=== PATIENT | female | born 1995 | race Caucasian/White ===

== ENCOUNTER 2025-01-25 12:57 | Outpatient (AMB) | payer OTHER, SELFPAY ==
[2025-01-25 12:58] VITALS: BP 112/66; PULSE 84; RESP 20; TEMP 36.8; O2SAT 97; BMI 24.7
--- NOTE | 2025-01-25 12:58 | MHC.PC.OV ---
Vital Signs 01/25/25 12:58 Height 5 ft 5.5 in Weight 150 lb 12.8 oz BMI 24.7 BP 112/66 Blood Pressure Location Lt brachial Position Sitting Respiration 20 Pulse 84 Pulse Source Pulse Oximeter Temp 98.2 F Temp Source Oral Pulse Oximetry (%) 97 Oxygen Delivery Method Room Air Intake Visit Reasons: Establish Care Intake Note: Patient is a new patient here to establish care. Transferring care from [facility] in [place], [place]. Patient approximates that she was last seen in that office over 7 years ago. Medical records have not been requested and have not been received. Psychiatric Clinical Nurse Specialist Required: No Accompanied by: Self / Same As Patient Allergies nickel [NICKEL] Allergy (Intermediate, Unverified 01/25/25 13:27) RASH acetaminophen [From [facility]] Allergy (Unknown, Unverified 01/25/25 13:27) HIVES hydrocodone [From [facility]] Allergy (Unknown, Unverified 01/25/25 13:27) HIVES METAL Allergy (Unknown, Uncoded 01/25/25 13:27) rash Medication List - Last Reconciled 01/25/25 by MARICHUY Cunningham etonogestrel (Nexplanon) subdermal methadone 15 mg PO DAILY Tobacco use date assessed: 01/25/25 Dental Screening Dental Screen Date: 01/25/25 Did you have a dental visit in the last 12 months?: Yes Did you have a dental problem in the last 6 months where you did not have access to dental care?: No Was dental information given to patient?: Patient has dentist HPI Establish Care HPI Details Previous PCP: Susy Dickey Last visit: 7 years ago Last PE:same Specialist: [facility] [place] OBGYN: Will need to be referred Past medical history: hx of opioid dependence, Medications: Family HX: dad -bipolar, mother fibromyalgia The patient is a 29-year-old female presenting to establish care The patient reports that she had a benign tumor removed from the right side of her face in 2018 She reports a history of kidney stones and lumps in her throat that is always swollen intermittently Reports that she used to see ENT for this. Reports that she has a history of the septum deviation and she was given a nose spray Patient reports that she developed a hole in her septum. Reports that she gets constant yellow and greenish drainage from her nose intermittently but has not seen a doctor in a while due to insurance issues Patient also reports that she was told that she has a thyroid nodule in the past and would like this to be worked up Patient is on methadone-she is currently being seeing at [facility] in [place] Reports that she has ingrown toenails for bilateral great toes Reports that she had Nexplanon subdermal in her left arm for since 2016 or 2017 and she is concern that it has been in too long She denies shortness of breath, chest pain, heart palpitation or dizziness Denies any abdominal pain or change in bowel habits She denies any urinary symptoms [facility] Medical History (Updated 02/06/25 @ 00:05 by MARICHUY Cunningham) Kidney stones Opioid dependence Lump in throat Benign skin tumor Thyroid nodule Surgical History H/O excision of mass Family History Father Bipolar disorder FH: mental illness Alcohol abuse Mother Fibromyalgia Alcohol abuse Social History Household Members Other:: Mother Housing: Apartment Are you a primary healthcare analyst to a significant other at home: Yes (Mother) Alcohol intake: former Patient Tobacco Use Status: Current everyday Tobacco user Tobacco use type: Cigarette Cigarette Packs Per Day: 1 e-Cigarette/Vaping Use: Former Use service: No Current occupational status: employed 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 1. Little interest or pleasure in doing things: several days 2. Feeling down, depressed, or hopeless: several days 3. Trouble falling or staying asleep, or sleeping too much: several days 4. Feeling tired or having little energy: several days 5. Poor appetite or overeating: several days 6. Feeling bad about yourself - or that you are a failure or have let yourself or your family down: several days 7. Trouble concentrating on things, such as reading the newspaper or watching television: several days 8. Moving or speaking so slowly that other people could have noticed. Or the opposite - being so fidgety or restless that you have been moving around a lot more than usual: several days 9. Thoughts that you would be better off or of hurting yourself in some way: several days Total score: 9 Depression Screening Interpretation: Positive Depression Screening Done: Yes 97587 - PHQ-9 Billing: Yes Source: Developed by Drs. Emeterio Ortiz, Heena Tolentino, Rashadr Robledo and colleagues, with an educational kristy from [employer]. Thrive Questionnaire Date Thrive assessed: 01/25/25 I am a: Patient What is your living situation today?: I have a steady place to live Within the past 12 months, did the food you bought not last and you didn't have the money to get more?: Never true Within the past 12 months, did you worry whether your food would run out before you got money to buy more?: Never true Do you have trouble paying for medicines?: No Do you have trouble getting transportation to medical appointments?: No Do you have trouble paying your heating and electricity bill?: Yes Do you have trouble taking care of your child, family member or friend?: No Do you have trouble with day-to-day activities such as bathing, preparing meals, shopping, managing finances, etc.?: No Are you currently unemployed and looking for a job?: No Are you interested in more education?: Yes Please select the resources that you would like help with: None Currently or been in a relationship where the following occur: No concerns reported THRIVE Score: 1 AUDIT C Alcohol Use Questionnaire (AUDIT-C) 1. How often do you have a drink containing alcohol?: Monthly or less 2. How many drinks containing alcohol do you have on a typical day when you are drinking?: 3 or 4 3. How often do you have six or more drinks on one occasion?: Never Total Score: 2 BABATUNDE-7 AMB Questionnaire BABATUNDE-7 Date BABATUNDE - 7 assessed: 01/25/25 Feeling nervous, anxious, or on edge: 3 = Nearly every day Not being able to stop or control worryin = Nearly every day Worrying too much about different things: 3 = Nearly every day Trouble relaxin = Nearly every day Being so restless that it is hard to sit still: 3 = Nearly every day Becoming easily annoyed or irritable: 3 = Nearly every day Feeling afraid as if something awful might happen: 3 = Nearly every day Total BABATUNDE-7 score (0-4 normal; 5-9 mild; 10-14 moderate; 15-21 severe): 21 Source: Developed by Drs. Emeterio Ortiz, Heena Tolentino, Rashard Robledo and colleagues, with an educational kristy from [employer]. BABATUNDE-7 Assessment Billing BABATUNDE-7 Assessment Tool: BABATUNDE-7 Assessment 44691 Review of Systems Const Denies headache(s) Eyes Denies loss of vision ENT Denies vertigo, Denies dizziness, Denies headache(s), Reports nasal congestion, Reports nasal discharge and Denies sore throat Card Denies chest pain, Denies leg edema and Denies lightheadedness Resp Denies cough, Denies hemoptysis and Denies wheezing GI Denies abdominal pain, Denies melena, Denies constipation, Denies diarrhea and Denies vomiting Denies urinary frequency, Denies dysuria and Denies urinary urgency Musc Denies arthralgias, Denies joint swelling, Denies numbness and Denies tingling Skin/Breast Reports other (Ingrown toenail) Neuro Denies Abnormal speech present, Denies behavioral changes, Denies vertigo, Denies dizziness, Denies headache(s), Denies loss of vision, Denies memory loss, Denies numbness and Denies tingling Psych Reports anxiety, Denies behavioral changes, Reports depression, Denies memory loss and Denies panic attacks Martir/Lymph Denies easy bleeding and Denies easy bruising Aller/Immun Denies wheezing Physical exam (Primary Care) Vital Signs: Last Vital Signs Temp 98.2 F 01/25/25 12:58 Pulse 84 01/25/25 12:58 Resp 20 01/25/25 12:58 BP 112/66 01/25/25 12:58 Pulse Ox 97 01/25/25 12:58 Oxygen Delivery Method Room Air 01/25/25 12:58 BMI result Body Mass Index 24.7 Tobacco/Smoking Status: Tobacco use Status Tobacco use date assessed 01/25/25 01/25/25 13:02 Patient Tobacco Use Status Current everyday Tobacco 01/25/25 13:21 Tobacco use type Cigarette 01/25/25 13:21 e-Cigarette/Vaping Use Former Use 01/25/25 13:21 PHQ-9: PHQ-9 Score PHQ-9: Total score 9 01/25/25 15:34 Depression Screening Interpretation: Positive Thrive Assessment: Date of Thrive Assessment Date Thrive assessed 01/25/25 01/25/25 13:02 Currently or been in a relationship where the following occur: No concerns reported Const General: healthy appearing, no acute distress, alert and awake Nutritional Appearance: well nourished Orientation/consciousness: oriented to person, oriented to place and oriented to time HENMT Ears: TM's normal bilaterally General nose exam: Abnormal mucous membranes and turbinates present boggy and erythematous, Nasal discharge present purulent and Other nasal findings present (hole in septum) Eyes Conjunctivae: conjunctivae normal Sclerae: sclerae normal Pupils: Equal, round and reactive pupils present Neck Neck: Yes no lymphadenopathy and Yes no JVD Thyroid: lateral enlargement Carotids: no bruits Resp Effort & Inspection: normal respiratory effort and not tachypneic Auscultation: no crackles, no rales, no rhonchi and no wheezes Cardio Rate: regular rate Rhythm: regular rhythm Heart sounds: no murmurs and normal S1 and S2 GI Palpation (GI): Soft to palpation, nontender, no hepatomegaly and no splenomegaly Auscultation: normal bowel sounds Skin General skin exam: no rashes or lesions noted and dry skin Neuro General: oriented to person, oriented to place and oriented to time Cranial nerves: Yes Equal, round and reactive pupils present Speech: No Abnormal speech present Gait exam (Neuro): Normal gait present Motor exam (neuro): no tremor noted Extrem Right upper extremity: full ROM Left upper extremity: full ROM Right lower extremity: full ROM and foot (Great ingrown toenail); no edema Left lower extremity: full ROM and foot (Great toe ingrown toenail); no edema Psych Mental Status: mental status grossly normal Speech and movement: Normal speech and movement present Affect: normal affect Attitude: cooperative Thought process: Normal thought process present Coding Level of Care Code New Pt Level 4 (99189) Diagnoses Nexplanon in place Z97.5 Opioid dependence with opioid-induced disorder F11.29 Substance use status: with unspecified opioid-induced disorder Ingrown toenail L60.0 Goiter E04.9 Rhinitis, unspecified type J31.0 Rhinitis type: unspecified Additional Codes BABATUNDE-7 Assessment Billing - BABATUNDE-7 Assessment Tool: BABATUNDE-7 Assessment 09891 ([id number]) PHQ-9 - 68008 - PHQ-9 Billing: Yes ([id number]) Time Spent (min) 43 Assessment & Plan Assessment & Plan (1) Nexplanon in place: Code(s): Z97.5 - Presence of (intrauterine) contraceptive device Category: Social Hx Plan: Reports nexplanon subdermal in left arm since 2016-will refer the patient to obgyn (2) Opioid dependence: Code(s): F11.20 - Opioid dependence, uncomplicated Category: Medical Qualifiers: Substance use status: with unspecified opioid-induced disorder Qualified Code(s): F11.29 - Opioid dependence with unspecified opioid-induced disorder Plan: The patient has a history of opioid dependence. She is currently on methadone 15 mg daily Follow up with [facility] [place] as scheduled (3) Ingrown toenail: Code(s): L60.0 - Ingrowing nail Category: Medical Plan: We will refer the patient to podiatry (4) Goiter: Code(s): E04.9 - Nontoxic goiter, unspecified Category: Medical Plan: Large the neck area. Reports history of thyroid nodule. We will order an ultrasound to further evaluate (5) Rhinitis: Code(s): J31.0 - Chronic rhinitis Category: Medical Qualifiers: Rhinitis type: unspecified Qualified Code(s): J31.0 - Chronic rhinitis Plan: Erythematous and boggy terminates. Yellow drainage presenting bilateral nares. Augmentin 875-125 mg 1 tab b.i.d. times 10 days ordered. Deviated septum with small hole. We will refer the patient to ENT. Orders: Orders Complete Blood Count Auto Diff 01/25/25 Z00.00 - Encounter for general adult medical examination without abnormal findings Comprehensive [place]. Panel Fast 01/25/25 Z00.00 - Encounter for general adult medical examination without abnormal findings Lipid Panel 01/25/25 Z00.00 - Encounter for general adult medical examination without abnormal findings Glucose Fasting 01/25/25 Z00.00 - Encounter for general adult medical examination without abnormal findings Vitamin D 25-OH Total 01/25/25 Z00.00 - Encounter for general adult medical examination without abnormal findings TSH reflex Free T4 01/25/25 Z00.00 - Encounter for general adult medical examination without abnormal findings UA CC w/rflx Micro + Cult 01/25/25 Z00.00 - Encounter for general adult medical examination without abnormal findings US thyroid 01/25/25 E04.9 - Nontoxic goiter, unspecified Medications: New amoxicillin-pot clavulanate 875-125 mg 1 tab PO BID 20 tabs 0RF 10 days J31.0 - Chronic rhinitis
== END 2025-01-25 13:56 | disposition home or self-care (01) ==
LOC: HO.HMCH 12:57
DX: Z97.5 Presence of (intrauterine) contraceptive device (principal); F11.29 Opioid dependence with unspecified opioid-induced disorder; L60.0 Ingrowing nail; E04.9 Nontoxic goiter, unspecified; J31.0 Chronic rhinitis

== ENCOUNTER → 2025-01-25 12:57 | Outpatient (BNVA) | payer OTHER, SELFPAY | DX: Z76.89 Persons encountering health services in other specified circumstances (principal); F11.29 Opioid dependence with unspecified opioid-induced disorder; L60.0 Ingrowing nail; E04.9 Nontoxic goiter, unspecified; J31.0 Chronic rhinitis; Z97.5 Presence of (intrauterine) contraceptive device | CPT/HCPCS: 96127 ==

== ENCOUNTER 2025-02-02 10:29 | Outpatient (REF) | payer OTHER, SELFPAY ==
[2025-02-02 10:55] LABS: MANUAL DIFF FLAG NO
[2025-02-02 11:51] LABS: Appearance Urine Clear; Color Urine Yellow; Glucose Urine UA Negative (Negative); Leukocyte Esterase Urine Negative (Negative); Nitrite Urine Negative (Negative); PH 7.5 (5.0-9.0); Urine Blood Negative (Negative); Urine Ketones Trace mg/dL (Negative); Urine Protein Negative (Neg-Trace)
[2025-02-02 11:53] LABS: Basophils Percent Auto 0.4 % (0-2); Eosinophils Absolute Auto 0.3 X10*3/uL (0.0-0.4); Eosinophils Percent Auto 3.1 % (0-4); Hematocrit 43.3 % (37.0-47.0); Hemoglobin 14.3 g/dl (12.0-16.0); Imm Gran Abs Auto 0.03 X10*3/uL (0.00-0.03); Imm Gran Pct Auto 0.3 % (0.0-0.4); Lymphocytes Absolute Auto 4.2 X10*3/uL (1.2-4.9); Lymphocytes Percent Auto 41.4 % (20-40); Mean Corpuscular Hemoglobin 30.6 pg (27.0-33.0); Mean Corpuscular Volume 92.5 fL (80.0-98.0); Mean Platelet Volume 10.6 fL (9.4-12.3); Monocytes Absolute Auto 0.7 X10*3/uL (0.1-1.2); Monocytes Percent Auto 7.1 % (2-11); Neutrophils Absolute Auto 4.8 x10*3/uL (2.0-8.3); Neutrophils Percent Auto 47.7 % (45-73); Platelet Count 270 X10*3/uL (160-400); Red Blood Count 4.68 X10*6/uL (4.20-5.50); Red Cell Distribution Width 12.5 % (11.0-16.0)
[2025-02-02 12:34] LABS: Alanine Aminotransferase 19 U/L (0-31); Albumin Level 4.3 g/dL (3.5-5.0); Alkaline Phosphatase 82 U/L (39-117); Anion Gap 9 (12-20); Aspartate Amino Transferase 20 U/L (5-31); Bilirubin Total 0.3 mg/dL (0.0-1.0); Blood Urea Nitrogen 8 mg/dL (9-16); Calcium 9.4 mg/dL (8.4-10.2); Carbon Dioxide 28 mmol/L (22-29); Chloride 108 mmol/L (96-108); Cholesterol 218 mg/dL (<200); Estimated Glomerular Filt Rate > 60; Glucose Fasting 93 mg/dL (60-99); HDL Cholesterol 39 mg/dL (>40); LDL Cholesterol Calculated 158 mg/dL (<100); Sodium 141 mmol/L (135-145); Total Protein 7.1 g/dL (6.5-8.0); Triglycerides 108 mg/dL (<150)
[2025-02-02 12:35] LABS: TSH reflex Free T4 0.95 uIU/mL (0.32-4.0); Vitamin D 25-OH Total 23.5 ng/mL (>30)
== END 2025-02-02 10:30 | disposition home or self-care (01) ==
LOC: HO.LAB 10:29
DX: Z00.00 Encounter for general adult medical examination without abnormal findings (principal)
CPT/HCPCS: 36415; 80053; 80061; 81003; 82306; 84443; 85025

== ENCOUNTER 2025-02-09 14:30 | Outpatient (REF) | payer OTHER, SELFPAY ==
--- NOTE | ~2025-02-09 | US_ITS ---
EXAMINATION: US THYROID HISTORY: E04.9 - Nontoxic goiter, unspecified TECHNIQUE: Real-time grayscale ultrasound imaging was performed and images were reviewed. COMPARISON: There are no prior studies for comparison. FINDINGS: SIZE: The right thyroid lobe measures 5.6 x 1.7 x 1.4 cm. The left thyroid lobe measures 4.9 x 1.3 x 1.5 cm. The isthmus measures 3 mm. FLOW: Flow to the gland is normal. ECHOGENICITY: The echotexture of the gland is homogeneous. NODULES: No nodules are identified. US/US thyroid IMPRESSION: Unremarkable thyroid ultrasound. ACR TI-RADS Guidelines TR1 (0 points): Benign, No follow-up or biopsy required TR2 (2 points): Not Suspicious, No biopsy or follow up indicated TR3 (3 points): Mildly Suspicious, FNA if >= 2.5 cm, Follow if >= 1.5 cm TR4 (4-6 points): Moderately Suspicious, FNA if >= 1.5 cm, Follow if >= 1.0 cm TR5 (>=7 points): Highly Suspicious, FNA if >= 1.0 cm, Follow if >= 0.5 cm Electronically signed by: Emeterio Brandon MD 02/09/2025 03:47 PM EDT
== END 2025-02-09 14:31 | disposition home or self-care (01) ==
LOC: HO.HMGCX 14:30
DX: E04.9 Nontoxic goiter, unspecified (principal)
CPT/HCPCS: 76536

== ENCOUNTER → 2025-02-09 14:34 | Outpatient (BNV) | payer OTHER, SELFPAY | PROVIDERS: Visit Provider Radiology Diagnostic Radiology | DX: E04.9 Nontoxic goiter, unspecified (principal) | CPT/HCPCS: 76536 ==

== ENCOUNTER 2025-05-08 13:50 | Outpatient (AMB) | payer OTHER, SELFPAY ==
--- NOTE | 2025-05-08 14:00 | A.OFFVIS_ITS ---
Vital Signs 05/08/25 14:11 Height 5 ft 5.5 in Weight 138 lb BMI 22.6 BP 102/68 Intake Visit Reasons: annual/b/c removal consult Intake Note: Patient complains of right breast lump x1 week, pain, no redness or drainage. PH balance may be off,vaginal discharge and fowl smell. Last pap smear x5 years or more, abnormal cells, has had colposcopy in the past. Tugboat Dispatcher: Tugboat Dispatcher Present (Abeba) Accompanied by: Self / Same As Patient Allergies nickel (NICKEL) Allergy (Intermediate, Verified 05/08/25 14:10) RASH acetaminophen (From [facility]CO) Allergy (Unknown, Verified 05/08/25 14:10) HIVES hydrocodone (From [facility]) Allergy (Unknown, Verified 05/08/25 14:10) HIVES METAL Allergy (Unknown, Uncoded 01/25/25 13:27) rash Is last menstrual period known: Yes Last menstrual period: 05/01/25 Post menopausal: No Patient : No HPI Comments Details: Presenting for annual exam cleaning of vaginal discharge associated with foul odor. The patient gives a history of abnormal Pap smear between 2009 and 2015 no records available followed by multiple colposcopies but no procedures done also the patient is complaining of right breast lump of one-week duration no associated nipple discharge. The patient has Nexplanon since 2017 [facility] Medical History Vitamin D deficiency Kidney stones Opioid dependence Lump in throat Benign skin tumor Thyroid nodule Surgical History H/O excision of mass Family History Father Bipolar disorder FH: mental illness Alcohol abuse Mother Fibromyalgia Alcohol abuse Social History Household Members Other:: Mother Housing: Apartment Are you a primary physician primary care sports medicine to a significant other at home: Yes (Mother) Alcohol intake: former Patient Tobacco Use Status: Current everyday Tobacco user Tobacco use type: Cigarette Cigarette Packs Per Day: 1 e-Cigarette/Vaping Use: Former Use Patient : No service: No Current occupational status: employed 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 Cognitive needs: No Hearing needs: No Vision needs: No Female Reproductive History Menstrual Age of Menarche: 11 Duration of menses: 3-5 days Date of last menstrual period: 05/01/25 control method: implanted (Nexplanon) Total pregnancies: 2 Review of Systems Const All systems reviewed & are unremarkable except as noted in HPI and below Card Reports as per HPI Resp Reports as per HPI GI Reports as per HPI and Reports no additional complaints Reports as per HPI Physical Exam Vital Signs: Last Vital Signs BP 102/68 05/08/25 14:11 BMI result Body Mass Index 22.6 Const General: cooperative, healthy appearing and comfortable Chest Chest palpation & inspection: normal inspection of the chest and normal palpation of entire chest wall Breast/axilla inspection: inspection of breasts abnormal (Right breast 9 o'clock 2 cm in size 4 cm from the nipple, left breast wnl) and normal inspection of the axillae Breast/axilla palpation: normal palpation of the breasts, normal palpation of the axillae and no axillary lymphadenopathy Resp Effort & Inspection: normal respiratory effort Auscultation: clear to auscultation bilaterally Percussion: percussion normal Cardio Palpation: normal PMI Rate: regular rate Rhythm: regular rhythm Heart sounds: no murmurs and no rubs Peripheral pulses: Peripheral pulses 2+ throughout GI Inspection: Yes normal to inspection Palpation (GI): Soft to palpation, nontender, no guarding, not rigid and No hepatosplenomegaly present Percussion: Yes normal to percussion Auscultation: normal bowel sounds Rectal Exam - Female: deferred General: Yes bladder normal to palpation External Female Exam: No lesion Speculum Exam - Vagina: normal appearance of the vagina, normal palpation, normal vaginal discharge and not erythematous Speculum Exam - Cervix: normal appearance of the cervix and normal palpation Bimanual exam- vagina & uterus: normal bimanual exam, normal palpation, uterine size normal, bladder normal to palpation, consistency normal and normal palpation Bimanual Exam- Adnexa, other: normal adnexae, no masses and no tenderness Office Procedures Contraception Insert/Removal Details Details: Counseling/Consent: After discussing with the patient the risks of the procedure including bleeding, infection, scar tissue formation, , possible injury to blood vessels or nerves, chronic arm pain, blood transfusion, and irregular unpredictable bleeding Preopdx: Requesting Nexplanon removal Op: Nexplanon Removal Post op dx: same EBL= 10 cc Procedure: After discussing with the patient the risks of the procedure including bleeding, infection, scar tissue formation, the patient signed the consent and agreed with the plan; all questions answered. The patient was then put in the dorsal supine position with Left arm in which Nexplanon is located exposed. Then the area was scrubbed with betadine. Nexplanon was located next by palpation and the end closest to the elbow was marked with a sterile marker. 5cc 1% Xylocaine was used to anesthetize the area at the site near the tip of Nexplanon. Next, a 3 mm incision in the longitudinal direction of the arm at the tip of the implant was made and the Nexplanon was pushed toward the incision until the tip was visible. The implant was grasped with a curved mosquito forceps and pulled out gently. Then incision was closed with steri-strips approximating the edges and an adhesive bandage was applied. A pressure bandage was applied with sterile gauze to minimize bruising. At the end explained to the patient that she is not covered with contraception anymore and recommended for her to use another contraceptive method. Discharge instructions: Patient was instructed to call if any of the following occurs :temperature above 100.4, pain at the side of the incision, redness, discharge or gapping, arm pain or bleeding. All questions answered patient verbalized understanding . This note was generated with a voice recognition program. Some errors may have been overlooked during the review of this note. Sometimes these errors may affect the content or meaning of a given sentence. 68104 - Removal Assessment & Plan Assessment & Plan (1) Well woman exam: Code(s): Z01.419 - Encounter for gynecological examination (general) (routine) without abnormal findings Category: Medical Plan: Cotesting done. Counseled the patient about the recommended dietary allowance of 1000 mg of Hamzah cium & 600 IU of vitamin D. The patient was instructed to perform monthly self-breast exams and to schedule an annual exam in a year; All questions answered and the patient verbalized understanding. Instructed the patient to schedule annual exam in a year (2) Breast lump on right side at 9 o'clock position: Comment: 2 cm in size, 4 cm from nipple Code(s): N63.15 - Unspecified lump in the right breast, overlapping quadrants Category: Medical Plan: Discussed with the patient the finding on Breast exam (breast lump) .The differential diagnosis includes but not limited to lump/cyst/pre cancer/cancer or dense breast tissue. The work up includes breast US and diagnostic mammogram and referred the patient for surgical breast consult. (3) Bacterial vaginosis: Code(s): N76.0 - Acute vaginitis; B96.89 - Other specified bacterial agents as the cause of diseases classified elsewhere Category: Medical Plan: GC and chlamydia cultures with BV panel taken. Per CDC recommendation, will screen for STI, HepBs Ag, HIV, RPR, Hep C Ab ordered. Will treat with Flagyl 500 mg p.o. b.i.d. x 7 days, Instructions given to the patient to refrain from sexual activity or to use condoms consistently and correctly during the BV treatment regimen, not to douch, it might increase the risk for relapse, and to call if symptoms persist or recur. (4) Nexplanon removal: Code(s): Z30.46 - Encounter for surveillance of implantable subdermal contraceptive Category: Medical Plan: Recommended Nexplanon removal since since 2019, Nexplanon removal done, see procedure note (5) Family planning: Code(s): Z30.09 - Encounter for other general counseling and advice on contraception Category: Social Hx Plan: Discussed with the patient the different options of control including control pills/Nuvaring, Depo Medroxy Progesterone Acetate, IUD ( levonorgestrel, Copper), sterilization. All the pros, cons, risks and benefits of each were discussed with the patient. The patient decided to think about it and get back to me next visit. Instructions given the patient to use condoms as backup method for control since she does not have anymore method of control. All questions answered, the patient verbalized understanding. Orders: Orders US breast RT limited Today N63.15 - Unspecified lump in the right breast, overlapping quadrants Hepatitis C Antibody Today B96.89 - Other specified bacterial agents as the cause of diseases classified elsewhere, N76.0 - Acute vaginitis Syphilis Screen Today B96.89 - Other specified bacterial agents as the cause of diseases classified elsewhere, N76.0 - Acute vaginitis MM tomosynthesis diagnostic BI Today N63.15 - Unspecified lump in the right breast, overlapping quadrants Hepatitis B Surface Antigen Today B96.89 - Other specified bacterial agents as the cause of diseases classified elsewhere, N76.0 - Acute vaginitis HIV Ab/Ag Today B96.89 - Other specified bacterial agents as the cause of diseases classified elsewhere, N76.0 - Acute vaginitis Pap Smear Today Z01.419 - Encounter for gynecological examination (general) (routine) without abnormal findings HPV High risk Today Z01.419 - Encounter for gynecological examination (general) (routine) without abnormal findings CT NG by PCR Vag/Cerv Today Z01.419 - Encounter for gynecological examination (general) (routine) without abnormal findings Bacterial Vaginosis Panel Today Z01.419 - Encounter for gynecological examination (general) (routine) without abnormal findings AMB Nexplanon/Implanon Insertion/Removal - Practice Supplied Today Z30.46 - Encounter for surveillance of implantable subdermal contraceptive Referrals General Surgery Referral N63.15 - Unspecified lump in the right breast, overlapping quadrants Medications: New metronidazole 500 mg PO BID 14 tabs 0RF 7 days Coding Level of Care Code New Pt Level 4 (16368) Procedure Only Diagnoses Well woman exam Z01.419 Breast lump on right side at 9 o'clock position N63.15 Bacterial vaginosis N76.0; B96.89 Nexplanon removal Z30.46 Family planning Z30.09 CPT Codes Details - Contraception: 69030 - Removal ([id number])
[2025-05-08 14:11] VITALS: BP 102/68; BMI 22.6
== END 2025-05-08 14:57 | disposition home or self-care (01) ==
LOC: HO.HWS 13:50
PROVIDERS: Visit Provider Obstetrics & Gynecology
DX: Z01.419 Encounter for gynecological examination (general) (routine) without abnormal findings (principal); N63.15 Unspecified lump in the right breast, overlapping quadrants; N76.0 Acute vaginitis; B96.89 Other specified bacterial agents as the cause of diseases classified elsewhere; Z30.46 Encounter for surveillance of implantable subdermal contraceptive; Z30.09 Encounter for other general counseling and advice on contraception; Z32.02 Encounter for pregnancy test, result negative
CPT/HCPCS: 11982; 99214; 99385; 99459

== ENCOUNTER 2025-05-08 13:50 | Outpatient (REF) | payer OTHER, SELFPAY ==
[2025-05-09 02:07] LABS: CT PCR NOT DETECTED (Not Detect.); NG PCR NOT DETECTED (Not Detect.)
[2025-05-09 08:08] LABS: HBsAGNum1 0.28 S/CO (0.00-0.99); HIV Num 1 0.05 S/CO (0.00-0.99); Hepatitis B Surface Antigen Negative (Negative); ~HepC Num1 0.09 S/CO (0.00-0.79); ~Hepatitis C Antibody Nonreactive (Nonreactive)
[2025-05-09 08:20] LABS: Syphilis Screen Nonreactive (Nonreactive)
[2025-05-09 11:20] LABS: Bacterial Vaginosis PCR NEGATIVE (Negative); Candida Group PCR NOT DETECTED (Not Detect); Candida glab krusei PCR NOT DETECTED (Not Detect); Trichomonas vaginalis PCR NOT DETECTED (Not Detect)
== END 2025-05-08 13:51 | disposition home or self-care (01) ==
LOC: HO.LNP 13:50
PROVIDERS: Visit Provider Obstetrics & Gynecology
DX: Z01.411 Encounter for gynecological examination (general) (routine) with abnormal findings (principal); N63.15 Unspecified lump in the right breast, overlapping quadrants; N76.0 Acute vaginitis; B96.89 Other specified bacterial agents as the cause of diseases classified elsewhere
CPT/HCPCS: 11982; 81025; 81515; 86780; 86803; 87340; 87389; 87491; 87591; 87626; 88175

== ENCOUNTER 2025-05-08 14:53 | Outpatient (REF) | payer OTHER, SELFPAY ==
[2025-05-08 15:05] LABS: MANUAL DIFF FLAG NO
[2025-05-08 15:36] LABS: Hematocrit 41.5 % (37.0-47.0); Hemoglobin 13.9 g/dl (12.0-16.0); Imm Gran Abs Auto 0.03 X10*3/uL (0.00-0.03); Imm Gran Pct Auto 0.3 % (0.0-0.4); Lymphocytes Absolute Auto 3.6 X10*3/uL (1.2-4.9); Mean Corpuscular HGB Conc 33.5 g/dl (31.0-35.0); Mean Corpuscular Hemoglobin 31.1 pg (27.0-33.0); Mean Corpuscular Volume 92.8 fL (80.0-98.0); NRBC Abs Auto 0.000 X10*3/uL (0.0-0.012); NRBC Pct Auto 0.0 /100WBC (0.0-0.2); Platelet Count 305 X10*3/uL (160-400); Red Blood Count 4.47 X10*6/uL (4.20-5.50); White Blood Count 11.9 X10*3/uL (4.8-10.8)
[2025-05-08 16:19] LABS: Alanine Aminotransferase 21 U/L (0-31); Albumin Level 4.5 g/dL (3.5-5.0); Alkaline Phosphatase 69 U/L (39-117); Anion Gap 11 (12-20); Aspartate Amino Transferase 27 U/L (5-31); Blood Urea Nitrogen 10 mg/dL (9-16); Calcium 9.2 mg/dL (8.4-10.2); Carbon Dioxide 27 mmol/L (22-29); Chloride 104 mmol/L (96-108); Cholesterol 196 mg/dL (<200); Estimated Glomerular Filt Rate > 60; HDL Cholesterol 47 mg/dL (>40); Potassium 4.1 mmol/L (3.3-5.1); Sodium 138 mmol/L (135-145); Total Protein 6.8 g/dL (6.5-8.0); Triglycerides 97 mg/dL (<150)
== END 2025-05-08 14:54 | disposition home or self-care (01) ==
LOC: HO.LAB 14:53
PROVIDERS: Visit Provider Obstetrics & Gynecology
DX: Z00.00 Encounter for general adult medical examination without abnormal findings (principal); E55.9 Vitamin D deficiency, unspecified; E78.5 Hyperlipidemia, unspecified; J31.0 Chronic rhinitis; J32.9 Chronic sinusitis, unspecified; F11.29 Opioid dependence with unspecified opioid-induced disorder
CPT/HCPCS: 36415; 80053; 80061; 82306; 84443; 85025

== ENCOUNTER 2025-07-03 19:45 | Emergency (ER) | payer OTHER, SELFPAY ==
[2025-07-03 19:57] VITALS: BP 137/77; PULSE 104; RESP 18; TEMP 36.7; O2SAT 97; BMI 22.9
--- NOTE | 2025-07-03 21:05 | ED.GENADULT ---
HPI - General Adult General Chief complaint: General Medical Stated complaint: missed methadone dosage Time Seen by Provider: 07/03/25 21:06 Source: patient Mode of arrival: ambulatory Limitations: no limitations History of Present Illness ED Provider: Dr. Luiza Chance HPI narrative: 30-year-old female with a history EMS opioid dependence on methadone therapy presenting with request for methadone refill since the clinic was closed today for the holiday. Has missed 2 days of methadone and was starting to feel sick. Describes generalized body aches, nausea, sweating, chills. No reported fever. She has not vomited. No diarrhea. Denies chest pain or difficulty breathing. Related Data Home Medications ?Medication ?Instructions ?Recorded ?Confirmed etonogestrel 68 mg subdermal subdermal 01/25/25 01/25/25 implant (Nexplanon) methadone 10 mg/mL oral concentrate 15 mg PO DAILY 01/25/25 01/25/25 Previous Rx's ?Medication ?Instructions ?Recorded atorvastatin 10 mg tablet 10 mg PO BEDTIME #30 tabs 02/17/25 cholecalciferol (vitamin D3) 25 25 mcg PO DAILY #30 caps 02/17/25 mcg (1,000 unit) capsule metronidazole 500 mg tablet 500 mg PO BID 7 days #14 tabs 05/08/25 Allergies Allergy/AdvReac Type Severity Reaction Status Date / Time nickel (NICKEL) Allergy Intermediate RASH Verified 07/03/25 20:00 acetaminophen (From [facility]) Allergy Unknown HIVES Verified 07/03/25 20:00 hydrocodone (From [facility]) Allergy Unknown HIVES Verified 07/03/25 20:00 METAL Allergy Unknown rash Uncoded 07/03/25 20:00 Review of Systems Review of Systems: As per HPI, full review of systems performed and negative but for the above mentioned pertinent positives and negatives. PMFSH Past Medical History Medical History Vitamin D deficiency Kidney stones Opioid dependence Lump in throat Benign skin tumor Thyroid nodule Surgical History H/O excision of mass Family History Family History Father Bipolar disorder FH: mental illness Alcohol abuse Mother Fibromyalgia Alcohol abuse Social History Social History Household Members Other:: Mother Housing: Apartment Are you a primary overnight caregiver to a significant other at home: Yes (Mother) Alcohol intake: former Patient Tobacco Use Status: Current everyday Tobacco user Tobacco use type: Cigarette Cigarette Packs Per Day: 1 e-Cigarette/Vaping Use: Former Use Advance Directives: No Advance Directives Information Provided: Yes service: No Current occupational status: employed 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 SKIN: Normal skin color for ethnicity, warm, dry, no rashes noted. HEENT: Normocephalic, atraumatic, no stridor, dry mucous membranes, dentition intact, EOMI, PERRLA. NECK: Soft, supple, full ROM, midline structures nontender, no step-offs, no deformities, no lymphadenopathy. CHEST: Heart regular tachycardia, no murmurs, symmetric chest rise and fall. PULMONARY: Clear to auscultation bilaterally, diminished at the bases, no labored breathing, no wheezes/rhales/rhonchi. ABDOMINAL: Soft, nondistended, nontender, positive bowel sounds in all quadrants. : Deferred. MUSCULOSKELETAL: Normal tone, full range of motion, no deformities, no peripheral edema. NEURO: Alert and oriented x3, CN II through XII intact, equal strength and sensation bilateral upper and lower extremities, no focal neurologic deficits. PSYCHIATRIC: Flat affect, fluid speech, good eye contact and appropriate demeanor. Vital Signs: Vital Signs - 24 hr 07/03/25 19:57 Temperature 98.0 F Pulse Rate 104 H Respiratory Rate 18 Blood Pressure 137/77 Pulse Oximetry 97 Oxygen Delivery Method Room Air BMI result Body Mass Index 22.9 Medical Decision Making Medical Decision Making MDM Narrative: 30-year-old female with opioid dependence presenting with a request for methadone refill. She missed her last 2 doses of methadone and is starting to have withdrawal symptoms. Last dose was Thursday. Plan for medication reconciliation and administration of methadone as appropriate. She will be discharged to follow up outpatient with her methadone clinic. Differential Diagnosis Opiate withdrawal Methadone dependence Gastroenteritis Viral syndrome Among others External Record Review External record reviewed: Outpatient record Chronic Conditions Patient?s care impacted by: Other (OUD) Discharge Plan Discharge Clinical Impression: Medication dose missed, Encounter for medication administration Patient Disposition: Home, Self-Care Instructions: Methadone (By mouth) Additional Instructions: Follow up at your methadone clinic as scheduled. Return to the ER with any new or worsening symptoms. Prescriptions: No Action atorvastatin 10 mg tablet 10 mg PO BEDTIME Qty: 30 3RF cholecalciferol (vitamin D3) 25 mcg (1,000 unit) capsule 25 mcg PO DAILY Qty: 30 3RF metronidazole 500 mg tablet 500 mg PO BID 7 Days Qty: 14 0RF methadone 10 mg/mL concentrate 15 mg PO DAILY Nexplanon 68 mg implant subdermal Print Language: Upper Sorbian
--- NOTE | 2025-07-03 21:37 | HE.PHANOTE ---
methadone verified last dose given 06/30/25@1700 205 mg luis alberto Walsh
--- NOTE | 2025-07-03 21:39 | PC.NURSE ---
T/w called and verified methadone with [facility] [phone] spoke with Jillian. Pt last dose was 06/30/2025 of 205mg. no take home methadone. Methadone verification filled out and sent to pharmacy.
[2025-07-03] MEDS: methADONE HCl 20 MG/2 ML ORAL.CONC 205 MG PO (21:41)
[2025-07-03] MEDS: Naloxone HCl Nasal TAKE HOME 4 MG SPRAY 8 MG NOSTRILALT (21:50)
[2025-07-03 21:55] VITALS: BP 137/77; PULSE 104; RESP 18; TEMP 36.7; O2SAT 97
--- NOTE | 2025-07-04 16:28 | HE.PHANOTE ---
METHADONE CONFIRMATION FORM Patient takes 205mg daily from [facility] [phone]. Last dose 06/30/25 @ 1700
== END 2025-07-03 21:55 | disposition home or self-care (01) ==
PROVIDERS: Emergency Provider Emergency Medicine
DX: F11.20 Opioid dependence, uncomplicated (principal)
CPT/HCPCS: 99282; 99283

== ENCOUNTER 2025-07-12 14:10 | Outpatient (REF) | payer OTHER, SELFPAY ==
--- NOTE | ~2025-07-12 | US_ITS ---
EXAMINATION: US DIAGNOSTIC ULTRASOUND BREAST, RIGHT CLINICAL INFORMATION: Right palpable lump for one month. Patient is unsure if she is and prefers to just start with ultrasound. She will return for mammography after she confirms she is not . COMPARISON: No prior imaging is available at this time. TECHNIQUE: Ultrasound of the breast is performed with real-time conte scale imaging and color Doppler. FINDINGS: Targeted color Doppler ultrasound scanning in the area of the patient's palpable lump 9:00 3 cm from nipple demonstrates a solid irregular mass at 9:00 3 cm from the nipple with internal vascular flow measuring 8 x 6 x 6 mm correlating with the palpable lump. Otherwise there is no other suspicious finding scanning from 8:00 in the area the patient's palpable lump. Results are discussed with the patient at time of visit. US/US breast RT limited mamm only IMPRESSION: Solid irregular mass at 9:00 3 cm from the nipple correlating with the patient's right breast palpable lump. Recommend ultrasound-guided core needle biopsy at this time. The findings and recommendations were discussed with the patient the procedure will be scheduled. Patient preferred to not have bilateral mammography today she was on sure if she was . Bilateral diagnostic mammograms recommended at this time for further evaluation. ASSESSMENT: BI-RADS 4: Suspicious RECOMMENDATION: Right breast biopsy recommended at this time. Bilateral diagnostic mammogram recommended at this time. Breast surgical consultation recommended at this time. Electronically signed by: Victoria Guzmán DO 07/13/2025 12:34 PM EDT
== END 2025-07-12 14:11 | disposition home or self-care (01) ==
LOC: HO.MAMMO 14:10
PROVIDERS: Visit Provider Obstetrics & Gynecology
DX: N63.15 Unspecified lump in the right breast, overlapping quadrants (principal)
CPT/HCPCS: 76642

== ENCOUNTER → 2025-07-12 14:30 | Outpatient (BNV) | payer OTHER, SELFPAY | PROVIDERS: Visit Provider Internal Medicine | DX: N63.11 Unspecified lump in the right breast, upper outer quadrant (principal); N63.13 Unspecified lump in the right breast, lower outer quadrant | CPT/HCPCS: 76642 ==

== ENCOUNTER 2025-07-13 14:58 | Outpatient (AMB) | payer OTHER, SELFPAY ==
--- NOTE | 2025-07-13 14:59 | MHC.OFFVIS ---
Intake Visit Reasons: ultrasound results Allergies nickel (NICKEL) Allergy (Intermediate, Verified 07/03/25 20:00) RASH acetaminophen (From [facility]) Allergy (Unknown, Verified 07/03/25 20:00) HIVES hydrocodone (From [facility]) Allergy (Unknown, Verified 07/03/25 20:00) HIVES METAL Allergy (Unknown, Uncoded 07/03/25 20:00) rash HPI Comments Details: The patient is schedule telehealth visit for breast ultrasound follow-up done on 07/13/2025 which showed the following: IMPRESSION: Solid irregular mass at 9:00 3 cm from the nipple correlating with the patient's right breast palpable lump. Recommend ultrasound-guided core needle biopsy at this time. The findings and recommendations were discussed with the patient the procedure will be scheduled. Patient preferred to not have bilateral mammography today she was on sure if she was . Bilateral diagnostic mammograms recommended at this time for further evaluation. ASSESSMENT: BI-RADS 4: Suspicious RECOMMENDATION: Right breast biopsy recommended at this time. Bilateral diagnostic mammogram recommended at this time. Breast surgical consultation recommended at this time. [facility] Medical History Vitamin D deficiency Kidney stones Opioid dependence Lump in throat Benign skin tumor Thyroid nodule Surgical History H/O excision of mass Family History Father Bipolar disorder FH: mental illness Alcohol abuse Mother Fibromyalgia Alcohol abuse Social History Household Members Other:: Mother Housing: Apartment Are you a primary social worker palliative care to a significant other at home: Yes (Mother) Alcohol intake: former Patient Tobacco Use Status: Current everyday Tobacco user Tobacco use type: Cigarette Cigarette Packs Per Day: 1 e-Cigarette/Vaping Use: Former Use service: No Current occupational status: employed 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: 6 Assessment & Plan Assessment & Plan (1) Abnormal ultrasound of breast: Code(s): R92.8 - Other abnormal and inconclusive findings on diagnostic imaging of breast Category: Medical Plan: Explained to the patient the results of the breast ultrasound, differential diagnosis includes but not limited to benign, pre malignant or malignant findings. Explained to the patient the results the ultrasound BI-RADS 4, suspicious, recommended ultrasound guided biopsy and bilateral diagnostic mammogram. Ultrasound guided breast biopsy scheduled by Dr. Lopez and diagnostic bilateral mammogram , the patient is aware. I spent a total of 20 minutes reviewing the chart, talking to the patient via video and documenting in the medical record. Coding Level of Care Code Tele Est Pt Level 3 (76692) Diagnoses Abnormal ultrasound of breast R92.8
== END 2025-07-13 15:35 | disposition home or self-care (01) ==
LOC: HO.HWS 14:58
PROVIDERS: Visit Provider Obstetrics & Gynecology
DX: R92.8 Other abnormal and inconclusive findings on diagnostic imaging of breast (principal)
CPT/HCPCS: 99213

== ENCOUNTER 2025-07-14 10:12 | Outpatient (AMB) | payer OTHER, SELFPAY ==
--- NOTE | 2025-07-14 10:23 | MHC.OFFVIS ---
Vital Signs 07/14/25 10:33 Height 5 ft 5 in Weight 141 lb 4 oz BMI 23.5 BP 150/86 H Blood Pressure Location Lt brachial Position Sitting Pulse 101 H Intake Visit Reasons: (R) breast US BX 9:00 mass Intake Note: Pt is seen in office for ultrasound biopsy CONSULT, right breast 9 o'clock mass. Pt c/o: feels a lump on the right breast for a couple of months, increase in size, pain around the lump, swelling, denies redness, discharge, no prior breast surgeries or concerns, fm hx of breast cancer maternal aunt at age of 70yrs old Bx Sched: 07/19/25 Transitions Manager Rn Required: No Counselor At Law: Counselor At Law Present Accompanied by: Family/Other Allergies nickel (NICKEL) Allergy (Intermediate, Verified 07/14/25 10:31) RASH acetaminophen (From [facility]) Allergy (Unknown, Verified 07/14/25 10:31) HIVES hydrocodone (From [facility]) Allergy (Unknown, Verified 07/14/25 10:31) HIVES METAL Allergy (Unknown, Uncoded 07/14/25 10:31) rash HPI Comments Details: 30-year-old female patient presenting with complaints of a palpable breast lump in the right breast 1st noted in May 2025. She reports pain at the site and feels that the lesion has gradually increased in size since May. She denies any previous history of breast problems or breast surgery. Her family history is significant for breast cancer and a maternal great aunt. There are other cancers in the family including throat in lung CA. She was previously on the Nexplanon but this was recently removed and she is now having some spotting. Her menarche was at 11. She is 5 para 0 with 5 SABs. Ultrasound of the right breast was performed because the patient was unsure if she was . This revealed a solid irregular mass at the 9 o'clock position 3 cm from the nipple correlating with the patient's breast palpable lump. This was felt to be suspicious for malignancy (BI-RADS 4) and ultrasound-guided core biopsy scheduled for 07/19/2025 at the [facility]. She denies a previous history of breast problems or breast surgery. [facility] Medical History Vitamin D deficiency Kidney stones Opioid dependence Lump in throat Benign skin tumor Thyroid nodule Surgical History H/O excision of mass Family History (Updated 07/14/25 @ 10:38 by SUSHANT Ricardo) Father Bipolar disorder FH: mental illness Alcohol abuse Mother Fibromyalgia Alcohol abuse Maternal Grandmother Uterine cancer, sarcoma Maternal Grandfather Throat cancer Family/Other Lung cancer Family/Other Breast cancer, Onset Age: 70 Social History Household Members Other:: Mother Housing: Apartment Are you a primary day care home mother to a significant other at home: Yes (Mother) Alcohol intake: former Patient Tobacco Use Status: Current everyday Tobacco user Tobacco use type: Cigarette Cigarette Packs Per Day: 1 e-Cigarette/Vaping Use: Former Use service: No Current occupational status: employed 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 Cognitive needs: No Hearing needs: No Vision needs: No Female Reproductive History Menstrual Age of Menarche: 11 Date of last menstrual period: 06/12/25 Total pregnancies: 5 Number of Living Children: 0 Ab spontaneous: 5 Review of Systems Const All systems reviewed & are unremarkable except as noted in HPI and below Physical Exam Vital Signs: Last Vital Signs Pulse 101 H 07/14/25 10:33 BP 150/86 H 07/14/25 10:33 BMI result Body Mass Index 23.5 Const General: cooperative and no acute distress Nutritional Appearance: well nourished Orientation/consciousness: patient oriented x3 Limitations: no limitations HEENT Head: Yes normocephalic and Yes atraumatic Ears: hearing grossly normal bilaterally Chest Other: Bilateral nipple piercing Right breast with a palpable mass located in approximately the 8-9 o'clock position approximately 3 cm from the nipple with tenderness to palpation. Lesion measured approximately a cm in diameter. Lesion is mobile within the breast tissue without fixation to skin or chest wall. No other palpable masses or enlarged lymph nodes are appreciated. No nipple discharge could be expressed. Chest/axillae images:  1. Palpable mass lower outer quadrant right breast Resp Effort & Inspection: normal respiratory effort, no audible wheezes, no cough and no respiratory distress Cardio Jugular venous distension: no JVD GI Inspection: Yes normal to inspection Skin Other: Warm, dry, no rash Neuro General: patient oriented x3 Extrem General: Yes no clubbing, cyanosis or edema Results Reviewed Results Reviewed: Ultrasound right breast: Assessment & Plan Assessment & Plan (1) Breast lump on right side at 9 o'clock position: Comment: 2 cm in size, 4 cm from nipple Code(s): N63.15 - Unspecified lump in the right breast, overlapping quadrants Category: Medical (2) Abnormal ultrasound of breast: Code(s): R92.8 - Other abnormal and inconclusive findings on diagnostic imaging of breast Category: Medical Plan 30-year-old female patient presenting with a self identified palpable mass located in the right breast lower outer quadrant which has gradually increased in size and is causing discomfort. On examination there is a palpable mass measuring approximately a cm in the 8 to 9 o'clock position which is mobile within the breast tissue. On ultrasound this appears to be an irregularly shaped lesion to be suspicious for malignancy (BI-RADS 4). She is scheduled for an ultrasound-guided core biopsy at the [facility] on 07/19/2025. She will return in approximately 1 week following the biopsy to review the pathology results and discuss treatment options. Orders: Orders US breast ndl core biopsy RT Today N63.15 - Unspecified lump in the right breast, overlapping quadrants, R92.8 - Other abnormal and inconclusive findings on diagnostic imaging of breast Coding Level of Care Code New Pt Level 4 (29101) Diagnoses Breast lump on right side at 9 o'clock position N63.15 Abnormal ultrasound of breast R92.8
[2025-07-14 10:33] VITALS: BP 150/86; PULSE 101; BMI 23.5
== END 2025-07-14 10:43 | disposition home or self-care (01) ==
LOC: HO.HGS 10:12
PROVIDERS: Visit Provider Surgery
DX: N63.15 Unspecified lump in the right breast, overlapping quadrants (principal); R92.8 Other abnormal and inconclusive findings on diagnostic imaging of breast
CPT/HCPCS: 99204

== ENCOUNTER → 2025-07-19 09:30 | Outpatient (BNV) | payer OTHER, SELFPAY | PROVIDERS: Visit Provider Internal Medicine | DX: N63.15 Unspecified lump in the right breast, overlapping quadrants (principal) | CPT/HCPCS: 19083; 77062; 77065; 77066 ==

== ENCOUNTER 2025-07-19 09:34 | Outpatient (REF) | payer OTHER, SELFPAY ==
--- NOTE | ~2025-07-19 | MM_ITS ---
PROCEDURE: ULTRASOUND-GUIDED RIGHT BREAST BIOPSY CLINICAL INFORMATION: Palpable right breast lump correlating with a solid irregular mass on ultrasound. COMPARISON: Priors on PACS TECHNIQUE: The details of the procedure, as well as the risks, benefits, and alternatives to the procedure were explained to the patient in detail and all of her questions were answered, after which, written informed consent was obtained. PROCEDURE: Prior to the procedure, sonography revealed solid irregular mass right breast 9:00 3 cm from the nipple. A time-out was performed, the lesion intended for biopsy was targeted and the skin of the right breast was then prepped and draped in the usual sterile fashion. Using sonographic guidance, sterile technique, and 1% lidocaine without epinephrine for local anesthesia, a total of 8 cores were obtained through the targeted area with a 14 biopsy device. At the completion of tissue sampling, a single butterfly-shaped metallic clip was deposited at the biopsy site. An appropriate sample was obtained. The postprocedure 2-view direct digital mammogram reveals satisfactory positioning of the biopsy clip. The patient tolerated the procedure well and, after assuring adequate hemostasis, was discharged in good condition after reviewing postbiopsy breast care instructions. Final pathology results are pending. MM/MM tomosynthesis diagnostic RT IMPRESSION: 1. Uncomplicated sonographically-guided core biopsy of the right breast. The 2-view direct digital postprocedure mammogram reveals satisfactory positioning of the biopsy clip. 2. Final pathology results are pending. A separate report with final recommendations will be issued once these results are made available. Electronically signed by: Victoria Guzmán DO 07/19/2025 02:35 PM EDT
--- NOTE | ~2025-07-19 | MM_ITS ---
EXAMINATION: MM DIAGNOSTIC DIGITAL BREAST TOMOSYNTHESIS, BILATERAL CLINICAL INFORMATION: Right palpable mass correlating with a solid irregular mass on ultrasound, the patient does not have bilateral mammogram at the time of her diagnostic ultrasound of preprocedural bilateral mammogram was performed. COMPARISON: Mammography: Comparison is made with relevant prior exams. TECHNIQUE: Digital breast mammography with tomosynthesis is performed in both the craniocaudal and mediolateral oblique views along with computer-aided detection (CAD). FINDINGS: The breasts are heterogeneously dense, which may obscure small masses (ACR BI-RADS breast composition Category c). Left: There are no significant masses, abnormal calcifications, or other abnormalities. Right: BB marker in the upper outer breast middle depth without underlying abnormal finding. No suspicious calcifications masses or other abnormal findings. Results are provided to the patient at time of visit by the technologist. MM/MM tomosynthesis diagnostic BI IMPRESSION: Left: Negative. Right: No mammographic abnormal finding however solid irregular mass was seen on ultrasound. Ultrasound-guided core needle biopsy will be performed today. ASSESSMENT: BI-RADS BI-RADS 4 - Suspicious finding RECOMMENDATION: Biopsy recommended Pathology results consider breast MRI for further evaluation. Electronically signed by: Victoria Guzmán DO 07/19/2025 02:42 PM EDT
[2025-07-19] MEDS: Lidocaine HCl 1 % 20 ML VIAL 9 ML SUBCUT (11:20)
== END 2025-07-19 09:35 | disposition home or self-care (01) ==
LOC: HO.MAMMO 09:34
PROVIDERS: Visit Provider Surgery
DX: N63.15 Unspecified lump in the right breast, overlapping quadrants (principal); R92.8 Other abnormal and inconclusive findings on diagnostic imaging of breast
CPT/HCPCS: 19083; 77061; 77062; 77065; 77066; 88305; 88342; A4648; J2003

== ENCOUNTER 2025-08-01 11:43 | Outpatient (AMB) | payer OTHER, SELFPAY ==
--- NOTE | 2025-08-01 11:45 | MHC.OFFVIS ---
Vital Signs 08/01/25 11:49 Height 5 ft 5 in Weight 141 lb BMI 23.5 BP 130/79 Blood Pressure Location Rt brachial Position Sitting Pulse 105 H Intake Visit Reasons: fu/v breast BX Intake Note: Pt is seen in office for ultrasound biopsy RESULTS, right breast 9 o'clock mass. Pt c/o: bruising and tenderness along bx site. Denies oozing. Guide Visitor Required: No Accompanied by: Self / Same As Patient Allergies nickel (NICKEL) Allergy (Intermediate, Verified 08/01/25 11:49) RASH acetaminophen (From [facility]) Allergy (Unknown, Verified 08/01/25 11:49) HIVES hydrocodone (From [facility]) Allergy (Unknown, Verified 08/01/25 11:49) HIVES METAL Allergy (Unknown, Uncoded 08/01/25 11:49) rash Medication List - Last Reconciled 08/01/25 by Cam Lopez MD atorvastatin 10 mg PO BEDTIME cholecalciferol (vitamin D3) 25 mcg PO DAILY methadone 2.5 mg PO DAILY HPI Comments Details: 30-year-old female patient presenting with complaints of a palpable breast lump in the right breast 1st noted in May 2025. She reports pain at the site and feels that the lesion has gradually increased in size since May. She denies any previous history of breast problems or breast surgery. Her family history is significant for breast cancer and a maternal great aunt. There are other cancers in the family including throat in lung CA. She was previously on the Nexplanon but this was recently removed and she is now having some spotting. Her menarche was at 11. She is 5 para 0 with 5 SABs. Ultrasound of the right breast was performed because the patient was unsure if she was . This revealed a solid irregular mass at the 9 o'clock position 3 cm from the nipple correlating with the patient's breast palpable lump. This was felt to be suspicious for malignancy (BI-RADS 4) and ultrasound-guided core biopsy scheduled for 07/19/2025 at the [facility]. Pathology revealed intraductal papilloma without evidence of atypia or malignancy. The radiologist recommended obtaining a breast MRI due to the dense breasts and previous family history. A wide excision of the papilloma is also recommended. [facility] Medical History Vitamin D deficiency Kidney stones Opioid dependence Lump in throat Benign skin tumor Thyroid nodule Surgical History H/O excision of mass Family History Father Bipolar disorder FH: mental illness Alcohol abuse Mother Fibromyalgia Alcohol abuse Maternal Grandmother Uterine cancer, sarcoma Maternal Grandfather Throat cancer Family/Other Lung cancer Family/Other Breast cancer, Onset Age: 70 Social History Household Members Other:: Mother Housing: Apartment Are you a primary furnace caretaker to a significant other at home: Yes (Mother) Alcohol intake: former Patient Tobacco Use Status: Current everyday Tobacco user Tobacco use type: Cigarette Cigarette Packs Per Day: 1 e-Cigarette/Vaping Use: Former Use service: No Current occupational status: employed 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 [employer] Cognitive needs: No Hearing needs: No Vision needs: No Female Reproductive History Menstrual Age of Menarche: 11 Review of Systems Const All systems reviewed & are unremarkable except as noted in HPI and below Physical Exam Vital Signs: Last Vital Signs Pulse 105 H 08/01/25 11:49 BP 130/79 08/01/25 11:49 BMI result Body Mass Index 23.5 Const General: cooperative and no acute distress Nutritional Appearance: well nourished Orientation/consciousness: patient oriented x3 Limitations: no limitations HEENT Head: Yes normocephalic and Yes atraumatic Ears: hearing grossly normal bilaterally Chest Other: Bilateral nipple piercing Right breast with a palpable mass located in approximately the 8-9 o'clock position approximately 3 cm from the nipple with tenderness to palpation. Lesion measured approximately a cm in diameter. Lesion is mobile within the breast tissue without fixation to skin or chest wall. No other palpable masses or enlarged lymph nodes are appreciated. No nipple discharge could be expressed. Resp Effort & Inspection: normal respiratory effort, no audible wheezes, no cough and no respiratory distress Cardio Jugular venous distension: no JVD GI Inspection: Yes normal to inspection Skin Other: Warm, dry, no rash Neuro General: patient oriented x3 Extrem General: Yes no clubbing, cyanosis or edema Assessment & Plan Assessment & Plan (1) Intraductal papilloma: Code(s): D36.9 - Benign neoplasm, unspecified site Category: Medical (2) Extremely dense tissue of left breast on mammography: Code(s): R92.342 - Mammographic extreme density, left breast Category: Medical Plan 30-year-old female patient returning following a right breast ultrasound-guided core biopsy which revealed a intraductal papilloma. I will arrange for MRI of the breast after which she will return to review the results. We also discussed in the for a lumpectomy to remove the intraductal papilloma. She expressed understanding and agrees with the plan. Orders: Orders MR breast BI wo/w con Today D36.9 - Benign neoplasm, unspecified site, R92.342 - Mammographic extreme density, left breast Coding Level of Care Code Est Pt Level 3 (74898) Diagnoses Intraductal papilloma D36.9 Extremely dense tissue of left breast on mammography R92.342
[2025-08-01 11:49] VITALS: BP 130/79; PULSE 105; BMI 23.5
== END 2025-08-01 11:55 | disposition home or self-care (01) ==
LOC: HO.HGS 11:44
PROVIDERS: Visit Provider Surgery
DX: D36.9 Benign neoplasm, unspecified site (principal); R92.342 Mammographic extreme density, left breast
CPT/HCPCS: 99213